=== PATIENT | male | born 1955 | race Caucasian/White ===

== ENCOUNTER 2023-04-07 10:06 | Emergency (ER) | payer MEDICARE, SELFPAY ==
[2023-04-07 10:07] VITALS: BP 133/91; PULSE 98; RESP 19; TEMP 36.8; O2SAT 99; BMI 30.7
--- NOTE | 2023-04-07 10:15 | XR_ITS ---
FINAL REPORT CLINICAL HISTORY: pain/ no accident FINDINGS: Left knee Three views were obtained. There is no acute fracture or dislocation. Mild degenerative changes are present. There is mild meniscal calcification. Moderate joint effusion is identified. IMPRESSION: Moderate joint effusion. Reviewed, Interpreted and Dictated by Yasir Carmona III, MD Transcribed by Janis Robison Authenticated and . [facility]
--- NOTE | 2023-04-07 10:34 | EXP.UTC ---
Discharge Plan Disposition Patient Disposition: Home, Self-Care Condition: Good Prescriptions Prescriptions: New diclofenac sodium 1 % gel 4 g topical QID PRN (Reason: knee pain) Qty: 100 1RF Rx Instructions: apply to single knee as directed methylprednisolone [Medrol (Steve)] 4 mg tablets,dose pack See Rx Instructions .Route .COMPLEX 6 Days Qty: 21 0RF Rx Instructions: taper pack; Referrals Follow up/Referrals: Dave Farah MD [Primary Care Provider] - See instructions Eleno Noble JR, MD [Physician] - See instructions (Call office for appointment) Activity Restrictions/Add. Instructions Additional Instructions/Restrictions: *weight bearing as tolerated *RICE, Rest the extremity, Ice 15-20 minutes 3-4 times daily, Compress- wear the josesito wrap as discussed as much as possible to help reduce swelling and pain, Elevate the extremity when at rest *Josesito wrap/knee brace is for support and help control swelling, use it except in the shower. Be sure that is not to tight but not to loose either *Elevate when resting? *Diclofenac gel applied to knee as needed for pain an inflammation. If need something more can take Tylenol in between doses of Ibuprofen to help Immediately follow up with your family doctor for new or worsening of symptoms, or no noticeable improvement over the next 3-5 days Stay off leg as much as possible Clinical Impressions Clinical Impression: Effusion of knee joint Qualifiers: Laterality: left Qualified Code(s): M25.462 - Effusion, left knee Instructions Patient Instructions: DI for Knee Effusion, Methylprednisolone, Diclofenac Discharge ED Provider: Margot Cunningham [facility] General Stated complaint: left knee pain, no accident Mode of Arrival: Ambulatory Source of Information: Patient Limitations: No Limitations Time Seen by Provider: 04/07/23 10:20 Description of Symptoms (Recalled from Triage Doc. by RN): Patient reports left knee pain for 1 week. HEENT Symptoms (Recalled from RN notes): No Resp Symptoms (Recalled from RN notes): No Skin Symptoms (Recalled from RN notes): No MS Symptoms (Recalled from RN notes): Yes Functional Status (Recalled from RN notes): wnl History of Present Illness Provider Complaint: Patient states he has had bad knees for many years due to his profession States that he was working on a vehicle last week and he turned his knee wrong and it twisted and he has been having pain and swelling in his knee ever since States that he normally takes Motrin for it but he is no longer able to take it Related Data Previous Rx's Medication Instructions Recorded diclofenac sodium 1 % topical gel 4 g topical QID PRN knee pain #100 04/07/23 grams methylprednisolone 4 mg tablets in See Rx Instructions .Route 04/07/23 a dose pack (Medrol (Steve)) .COMPLEX 6 days #21 tabs Allergies Allergy/AdvReac Type Severity Reaction Status Date / Time No Known Allergies Allergy Verified 04/07/23 10:29 Worker's Comp Is this a Worker's Comp case?: No [facility] Disclaimer: The information contained in this section may have been updated after the patient was seen, as this information can be updated by other users. Social History Smoking Status: Unknown if ever smoked alcohol intake: never current occupational status: employed Travel in the last 8 weeks: None ROS Obtained: Yes All systems reviewed & no additional complaints except as documented and Yes Systems reviewed as appropriate & no additional complaints except as documented Constitutional Constitutional: Reports system reviewed and no additional complaints, except as documented, Reports as per HPI and Denies fever(s) ENT Ears, Nose, Mouth, and Throat: Reports system reviewed and no additional complaints, except as documented and Reports as per HPI Cardiovascular Cardiovascular: Reports system reviewed and no additional complaints, except as documented and Reports as per HPI Re
[2023-04-07 12:18] VITALS: BP 133/91; PULSE 98; RESP 19; TEMP 36.8; O2SAT 99
== END 2023-04-07 12:20 | disposition home or self-care (01) ==
PROVIDERS: Emergency Provider Nurse Practitioner; PCP Emergency Medicine
DX: M25.462 Effusion, left knee (principal); M25.562 Pain in left knee; X50.1XXA Overexertion from prolonged static or awkward postures, initial encounter
CPT/HCPCS: 73562; 99204; 99212; G0463

== ENCOUNTER 2023-06-30 11:16 | Emergency (ER) | payer MEDICARE, SELFPAY ==
[2023-06-30 11:35] VITALS: BP 131/86; PULSE 76; RESP 19; TEMP 36.7; O2SAT 98; BMI 28.8
--- NOTE | 2023-06-30 11:36 | XR_ITS ---
FINAL REPORT CLINICAL HISTORY: PAIN AND SWELLING, no known injury FINDINGS: 3 views of the right foot were obtained. There is no acute fracture or dislocation. There are moderate degenerative changes at the first MTP joint. There are mild degenerative changes elsewhere. There is a small calcaneal spur. IMPRESSION: No acute process. Reviewed, Interpreted and Dictated by Yasir Carmona III, MD Transcribed by Markie Barber Authenticated and [facility]
--- NOTE | 2023-06-30 11:45 | EXP.UTC ---
Discharge Plan Disposition Patient Disposition: Home, Self-Care Condition: Good Prescriptions Prescriptions: New colchicine (gout) [Colcrys] 0.6 mg tablet 0.6 mg PO DIRECTED Qty: 3 0RF Rx Instructions: Take 2 tablets (1.2mg) now and wait one hour then take remaining 0.6mg tablet No Action lisinopril 10 mg tablet 10 mg PO DAILY Patient Comments: TAKE 1 TABLET BY MOUTH EVERY DAY Referrals Follow up/Referrals: Provider,Referral, MD [Primary Care Provider] - See instructions Activity Restrictions/Add. Instructions Additional Instructions/Restrictions: Take medication as prescribed Follow up with your Family Doctor You was given a referral for Primary Care Main there is several providers in this office that is accepting new patients you can call to make appoitment Follow up if no improvement Straight to ER if any life threatening symptoms Clinical Impressions Clinical Impression: Gout attack Qualifiers: Gout site: foot Gout etiology: unspecified cause Laterality: right Qualified Code(s): M10.9 - Gout, unspecified Instructions Patient Instructions: Gout, DI for Gout, Colchicine Discharge ED Provider: Margot Cunningham [facility] General Stated complaint: RT FOOT SWOLLEN Mode of Arrival: Ambulatory Source of Information: Patient Limitations: No Limitations Time Seen by Provider: 06/30/23 11:45 Description of Symptoms (Recalled from Triage Doc. 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 banging things States for about the last week he has been having some swelling in his right foot that hurts when he puts weight on it States that if he stays off of it the swelling goes down and the pain decreases but this morning he started hurting again so he came in to get it checked States that he has a history of gout not sure if that could be what is going on or not Denies known injury Related Data Home Medications Medication Instructions Recorded Confirmed lisinopril 10 mg tablet 10 mg PO DAILY Hypertension 06/30/23 06/30/23 Previous Rx's Medication Instructions Recorded colchicine (gout) 0.6 mg tablet 0.6 mg PO DIRECTED #3 tabs 06/30/23 (Colcrys) Allergies Allergy/AdvReac Type Severity Reaction Status Date / Time No Known Allergies Allergy Verified 04/07/23 10:29 Worker's Comp Is this a Worker's Comp case?: No [facility] Disclaimer: The information contained in this section may have been updated after the patient was seen, as this information can be updated by other users. Medical History (Updated 06/30/23 @ 12:51 by Margot Cunningham APRN) Hypertension Social History (Updated 04/07/23 @ 12:13 by Margot Cunningham APRN) Smoking Status: Unknown if ever smoked alcohol intake: never current occupational status: employed Travel in the last 8 weeks: None ROS Obtained: Yes All systems reviewed & no additional complaints except as documented and Yes Systems reviewed as appropriate & no additional complaints except as documented Constitutional Constitutional: Reports system reviewed and no additional complaints, except as documented and Reports as per HPI ENT Ears, Nose, Mouth, and Throat: Reports system reviewed and no additional complaints, except as documented and Reports as per HPI Cardiovascular Cardiovascular: Reports system reviewed and no additional complaints, except as documented and Reports as per HPI Respiratory Respiratory: Reports system reviewed and no additional complaints, except as documented and Reports as per HPI Musculoskeletal Musculoskeletal: Reports system reviewed and
[2023-06-30 13:34] VITALS: BP 131/86; PULSE 76; RESP 19; TEMP 36.7; O2SAT 98
== END 2023-06-30 13:36 | disposition home or self-care (01) ==
PROVIDERS: Emergency Provider Nurse Practitioner
DX: M10.071 Idiopathic gout, right ankle and foot (principal); I10 Essential (primary) hypertension
CPT/HCPCS: 73630; 84550; 96372; 99212; 99214; G0463

== ENCOUNTER 2023-07-20 17:25 | Emergency (ER) | payer MEDICARE, SELFPAY ==
[2023-07-20 17:40] VITALS: BP 147/96; PULSE 76; RESP 18; TEMP 36.7; O2SAT 99; BMI 24.4
--- NOTE | 2023-07-20 17:40 | EXP.UTC ---
Discharge Plan Disposition Patient Disposition: Home, Self-Care Condition: Good Prescriptions Prescriptions: New mupirocin 2 % ointment 1 applic topical TID 7 Days Qty: 15 0RF amoxicillin-pot clavulanate 875-125 mg Tablet 1 tab PO Q12H Qty: 20 0RF No Action lisinopril 10 mg tablet 10 mg PO DAILY Patient Comments: TAKE 1 TABLET BY MOUTH EVERY DAY colchicine [Colcrys] 0.6 mg tablet 0.6 mg PO DIRECTED Qty: 3 0RF Rx Instructions: Take 2 tablets (1.2mg) now and wait one hour then take remaining 0.6mg tablet Referrals Follow up/Referrals: Provider,Referral, MD [Primary Care Provider] - See instructions Activity Restrictions/Add. Instructions Additional Instructions/Restrictions: Keep the wound clean and dry. Watch the wound for signs of worsening infection, such as worsening redness, swelling, drainage, fever. etc. Take tylenol or ibuprofen for pain. Follow up with your regular doctor. GO TO THE ER FOR ANY WORSENING SYMPTOMS OR CONCERNS. Clinical Impressions Clinical Impression: Cat bite of right hand, Need for Tdap vaccination, Cellulitis Instructions Patient Instructions: Cellulitis Discharge ED Provider: Gato Nicholson [facility] General Stated complaint: RT HAND CAT SCRATCH Time Seen by Provider: 07/20/23 17:40 History of Present Illness Provider Complaint: He states that he was bit and scratched by his house cat on his right hand 2 days ago. He denies that the cat ever goes outside. Related Data Home Medications Medication Instructions Recorded Confirmed lisinopril 10 mg tablet 10 mg PO DAILY Hypertension 06/30/23 07/20/23 Previous Rx's Medication Instructions Recorded colchicine 0.6 mg tablet (Colcrys) 0.6 mg PO DIRECTED #3 tabs 06/30/23 amoxicillin 875 mg-potassium 1 tab PO Q12H #20 tabs 07/20/23 clavulanate 125 mg tablet mupirocin 2 % topical ointment 1 applic topical TID 7 days #15 07/20/23 grams Allergies Allergy/AdvReac Type Severity Reaction Status Date / Time No Known Allergies Allergy Verified 07/20/23 17:47 [facility] Disclaimer: The information contained in this section may have been updated after the patient was seen, as this information can be updated by other users. Medical History (Updated 07/20/23 @ 18:16 by Gato Nicholson APRN) Hypertension Social History Smoking Status: Unknown if ever smoked alcohol intake: never current occupational status: employed Travel in the last 8 weeks: None ROS Obtained: Yes All systems reviewed & no additional complaints except as documented Constitutional Constitutional: Denies chills and Denies fever(s) Eyes Eyes: Denies eye discharge ENT Ears, Nose, Mouth, and Throat: Denies dizziness, Denies otalgia and Denies sore throat Cardiovascular Cardiovascular: Denies chest pain Respiratory Respiratory: Denies shortness of breath, Denies chest congestion, Denies cough, Denies stridor and Denies wheezing Gastrointestinal Gastrointestingal: Denies nausea or vomiting Musculoskeletal Musculoskeletal: Reports system reviewed and no additional complaints, except as documented and Denies arthralgias Integumentary/Breasts Skin/Breast: Reports as per HPI Neurologic Neurologic: Denies dizziness and Denies paresthesias Allergic/Immunologic Allergic/Immunologic: Denies wheezing Physical Exam General General appearance: alert and in no apparent distress Head Head exam: atraumatic, normocephalic and normal inspection Eye Eye exam: Present normal appearance, PERRL and EOMI ENT ENT exam: Present normal exam, normal oropharynx, mucous membranes moist, TM's normal bilaterally and normal external ear exam Neck Neck exam: Present normal inspection, full ROM and trachea midline; Absent meningismus or lymphadenopathy Chest Chest inspection: Present normal inspection and symmetric chest wall rise; Absent tenderness Respiratory Resp
[2023-07-20 18:48] VITALS: BP 147/96; PULSE 76; RESP 18; TEMP 36.7; O2SAT 99
== END 2023-07-20 18:48 | disposition home or self-care (01) ==
PROVIDERS: Emergency Provider Nurse Practitioner Family
DX: L03.113 Cellulitis of right upper limb (principal); Z23 Encounter for immunization; W55.01XA Bitten by cat, initial encounter; I10 Essential (primary) hypertension
CPT/HCPCS: 90715; 96372; 99212; 99214; G0463; J0696

== ENCOUNTER 2024-04-08 12:29 | Emergency (ER) | payer MEDICARE, SELFPAY ==
[2024-04-08 13:00] VITALS: BP 156/99; PULSE 86; RESP 18; TEMP 36.9; O2SAT 98; BMI 24.4
--- NOTE | 2024-04-08 14:10 | EXP.UTC ---
Discharge Plan Disposition Patient Disposition: Home, Self-Care Condition: Good Prescriptions Prescriptions: New prednisone 10 mg tablet 10 mg PO DIRECTED Qty: 30 0RF Rx Instructions: see taper instructions Referrals Follow up/Referrals: Provider,Referral, [Primary Care Provider] - See instructions Activity Restrictions/Add. Instructions Additional Instructions/Restrictions: Continue to ice knee and take Ibuprofen as previously prescribed. Take prednisone as prescribed. Elevate knee. Follow up with primary care provider Clinical Impressions Clinical Impression: Effusion of knee joint Qualifiers: Laterality: right Qualified Code(s): M25.461 - Effusion, right knee Instructions Patient Instructions: DI for Knee Effusion, DI for Knee Pain, How To Perform RICE (Rest, Ice, Compress, Elevate) Print Language Print Language: Ecuadorean Discharge ED Provider: Moraima Rodriguez [facility] General Stated complaint: swollen knee Mode of Arrival: Ambulatory Source of Information: Patient Limitations: No Limitations Time Seen by Provider: 04/08/24 13:41 Description of Symptoms (Recalled from Triage Doc. by RN): PATIENT C/O RIGHT KNEE PAIN AND SWELLING X 2 DAYS HEENT Symptoms (Recalled from RN notes): No Resp Symptoms (Recalled from RN notes): No Skin Symptoms (Recalled from RN notes): No MS Symptoms (Recalled from RN notes): Yes Functional Status (Recalled from RN notes): WNL History of Present Illness Provider Complaint: Pt reports that 2 days ago he was getting out of his recliner and twisted wrong and heard a pop in his right knee. He states that he has had swelling and pain in the knee before and does not wish an x-ray at this time. He states that he has been taking Ibuprofen 600 and putting ice on his knee. He states that this has helped, but when he went to work and was on the concrete floor his knee started hurting again. Related Data Previous Rx's ?Medication ?Instructions ?Recorded prednisone 10 mg tablet 10 mg PO DIRECTED #30 tabs 04/08/24 Allergies Allergy/AdvReac Type Severity Reaction Status Date / Time No Known Allergies Allergy Verified 07/20/23 17:47 Worker's Comp Is this a Worker's Comp case?: No [facility] Disclaimer: The information contained in this section may have been updated after the patient was seen, as this information can be updated by other users. Medical History (Updated 04/08/24 @ 14:14 by Moraima Rodriguez APRN) Hypertension Social History Smoking Status: Unknown if ever smoked alcohol intake: never current occupational status: employed Travel in the last 8 weeks: None ROS Obtained: Yes All systems reviewed & no additional complaints except as documented Constitutional Constitutional: Reports system reviewed and no additional complaints, except as documented Eyes Eyes: Reports system reviewed and no additional complaints, except as documented ENT Ears, Nose, Mouth, and Throat: Reports system reviewed and no additional complaints, except as documented Cardiovascular Cardiovascular: Reports system reviewed and no additional complaints, except as documented Respiratory Respiratory: Reports system reviewed and no additional complaints, except as documented Gastrointestinal Gastrointestingal: Reports system reviewed and no additional complaints, except as documented Genitourinary Male Genitourinary: Reports system reviewed and no additional complaints, except as documented Musculoskeletal Musculoskeletal: Reports abnormal gait, Reports arthralgias and Reports joint swelling Integumentary/Breasts Skin/Breast: Reports system reviewed and no additional complaints, except as documented Neurologic Neurologic: Reports system reviewed and no additional complaints, except as documented and Reports abnormal gait Endocrine Endocrine: Reports system reviewed and no additional complaints, except as documented Hematologic/Lymphatic Henatologic/Lymphatic: Reports system reviewed and no additional complaints, except as documented Allergic/Immunologic Allergic/Immunologic: Reports system reviewed and no additional complaints, except as documented Physical Exam General General appearance: alert and in no apparent distress Head Head exam: atraumatic and normocephalic Eye Eye exam: Present normal appearance ENT ENT exam: Present normal exam Neck Neck exam: Present normal inspection Chest Chest inspection: Present normal inspection and symmetric chest wall rise Respiratory Respiratory exam: Present normal lung sounds bilaterally Cardiovascular Cardiovascular exam: Present regular rate, normal rhythm and normal heart sounds Extremities Exam Extremities exam: Present tenderness, edema and joint swelling Expanded Lower Extremity Exam Right: Hip/Pelvis exam: Present normal inspection Upper leg exam: Present normal inspection Knee exam: Present tenderness, swelling and effusion Lower leg exam: Present normal inspection Ankle exam: Present normal inspection Foot/toe exam: Present normal inspection Neurovascular/Tendon exam: Present normal capillary refill Gait: observed and limited by pain Back Exam Back exam: Present normal inspection Neurological Exam Neurological exam: Present alert and oriented X3 Psychiatric Psychiatric exam: Present normal affect and normal mood Skin Skin exam: Present warm and dry Lymphatic Lymphatic Findings: no adenopathy Medical Decision Making Fortunato Inquiry Pt receiving controlled substance: No Fortunato was queried for this patient: No Vital Signs: 04/08/24 13:00 Temperature 98.5 F Temperature Source Oral Pulse Rate [Left Brachial] 86 Respiratory Rate 18 Blood Pressure [Left Arm] 156/99 H Blood Pressure Mean [Left Arm] 118 Blood Pressure Source [Left Arm] Automatic Cuff Blood Pressure Position [Left Arm] Sitting 02 Sat by Pulse Oximetry 98 Oxygen Delivery Method Room Air
[2024-04-08 14:14] VITALS: BP 156/99; PULSE 86; RESP 18; TEMP 36.9; O2SAT 98
== END 2024-04-08 14:17 | disposition home or self-care (01) ==
PROVIDERS: Emergency Provider Nurse Practitioner Family
DX: M25.561 Pain in right knee (principal); M25.461 Effusion, right knee
CPT/HCPCS: 99212; 99214; G0463

== ENCOUNTER 2024-05-31 11:34 | Outpatient (CLI) | payer MEDICARE, SELFPAY ==
--- NOTE | 2024-05-31 11:46 | XR_ITS ---
FINAL REPORT CLINICAL HISTORY: KNEE PAIN COMPARISON: 04/07/2023 FINDINGS: Four views of the left knee were obtained. There is no acute fracture or dislocation. There are mild degenerative changes. There is no acute soft tissue abnormality. IMPRESSION: Degenerative changes without acute process. Reviewed, Interpreted and Dictated by Cherrie Mark MD Transcribed by Joanie Spring Authenticated and [facility]
== END 2024-05-31 23:59 | disposition home or self-care (01) ==
LOC: RAD 11:36
PROVIDERS: PCP Family Medicine; Visit Provider Family Medicine
DX: M25.562 Pain in left knee (principal)
CPT/HCPCS: 73562

== ENCOUNTER 2024-09-02 11:13 | Emergency (ER) | payer MEDICARE, SELFPAY ==
[2024-09-02 13:00] VITALS: BP 130/90; PULSE 80; RESP 18; TEMP 36.9; O2SAT 98; BMI 25.9
--- NOTE | 2024-09-02 13:35 | ED_ITS ---
Discharge Plan Disposition Patient Disposition: Home, Self-Care Condition: Good Prescriptions Prescriptions: New azithromycin [Zithromax Z-Steve] 250 mg tablet See Rx Instructions .ROUTE .COMPLEX 5 Days Qty: 6 0RF Rx Instructions: For 250 mg dose pack: take 500 mg today (day 1), then 250 mg for 4 days (days 2-5) benzonatate 100 mg capsule 100 mg PO TID PRN (Reason: cough) Qty: 30 0RF methylprednisolone [Medrol (Steve)] 4 mg tablets,dose pack See Rx Instructions .Route .COMPLEX 6 Days Qty: 21 0RF Rx Instructions: taper pack; No Action prednisone 10 mg tablet 10 mg PO DIRECTED Qty: 30 0RF Rx Instructions: see taper instructions Referrals Follow up/Referrals: Provider,Referral, MD [Primary Care Provider] - See instructions Activity Restrictions/Add. Instructions Additional Instructions/Restrictions: *Monitor Temp, Over the counter Motrin or Tylenol as directed/as needed Tylenol every 4 hours and Motrin every 6 hours (as long as your family doctor has told you that you can take it) for fever or pain. and straight to ER if unable to lower temp less than 101.0 after medication given *Warm salt water gargles may help to soothe the throat *Throat Lozenges? *Warm fluids like tea with honey may help to soothe the throat? *Sleep elevated *Humidifier/Vaporizer Follow up IMMEDIATELY for new or worsening symptoms or no Noticeable improvement over the next 48-72 hours. 911 for difficulty breathing or swallowing Clinical Impressions Clinical Impression: Sinusitis Instructions Patient Instructions: DI for Sinusitis, Sinusitis Print Language Print Language: Indonesian Discharge ED Provider: Margot [place] [facility] [facility] [place] General Stated complaint: drainage, cough, body aches Mode of Arrival: Ambulatory Source of Information: Patient Limitations: No Limitations Time Seen by Provider: 09/02/24 13:35 Description of Symptoms (Recalled from Triage Doc. by RN): PATIENT C/O COUGH AND BODY ACHES THAT STARTED TODAY HEENT Symptoms (Recalled from RN notes): Yes Resp Symptoms (Recalled from RN notes): No Skin Symptoms (Recalled from RN notes): No MS Symptoms (Recalled from RN notes): No Functional Status (Recalled from RN notes): WNL History of Present Illness Provider Complaint: Patient states that he has been having sinus congestion and pressure then last night he started with cough and feeling like it was trying to move into his chest area so today when he was still not feeling well he came in to get checked Related Data Previous Rx's ?Medication ?Instructions ?Recorded prednisone 10 mg tablet 10 mg PO DIRECTED #30 tabs 04/08/24 azithromycin 250 mg tablet See Rx Instructions PO .COMPLEX 5 09/02/24 (Zithromax Z-Steve) days #6 tabs benzonatate 100 mg capsule 100 mg PO TID PRN cough #30 caps 09/02/24 methylprednisolone 4 mg tablets in See Rx Instructions .Route 09/02/24 a dose pack (Medrol (Steve)) .COMPLEX 6 days #21 tabs Allergies Allergy/AdvReac Type Severity Reaction Status Date / Time No Known Allergies Allergy Verified 07/20/23 17:47 Worker's Comp Is this a Worker's Comp case?: [facility] Disclaimer: The information contained in this section may have been updated after the patient was seen, as this information can be updated by other users. Medical History (Updated 09/02/24 @ 13:40 by Margot Cunningham APRN) Hypertension Social History Smoking Status: Unknown if ever smoked alcohol intake: never current occupational status: employed Travel in the last 8 weeks: None Have you lived/traveled outside US in past 30 days?: No Contact w/someone who lives/traveled outside US past 30 days?: No Exposure to someone with infectious disease in past 14 days?: No Do you have a fever (greater than 100.4 F or 38 C)?: No Have you tested positive for COVID-19: No Exposed to someone with COVID-19 in past 14 days?: No Do you have a sore throat?: No Do you have a cough?: Yes Do you have any weakness?: No Do you have any diarrhea?: No Are you experiencing any unusual bleeding?: No Do you have any muscle aches/pain?: Yes Do you have any abdominal pain?: No Are you experiencing loss of taste or smell?: No ROS Obtained: Yes All systems reviewed & no additional complaints except as documented and Yes Systems reviewed as appropriate & no additional complaints except as documented Constitutional Constitutional: Reports system reviewed and no additional complaints, except as documented and Reports as per HPI ENT Ears, Nose, Mouth, and Throat: Reports system reviewed and no additional complaints, except as documented, Reports as per HPI, Reports sinus pain and Reports sinus pressure Cardiovascular Cardiovascular: Reports system reviewed and no additional complaints, except as documented and Reports as per HPI Respiratory Respiratory: Reports system reviewed and no additional complaints, except as documented, Reports as per HPI, Denies shortness of breath, Reports chest congestion and Reports cough Physical Exam General General appearance: alert and in no apparent distress ENT ENT exam: Present mucous membranes moist Expanded ENT Exam Nose exam: Present sinus tenderness Respiratory Respiratory exam: Present normal lung sounds bilaterally; Absent respiratory distress or wheezes Cardiovascular Cardiovascular exam: Present regular rate, normal rhythm and normal heart sounds Neurological Exam Neurological exam: Present alert, oriented X3 and normal gait Medical Decision Making Medical Records Screening: Per USPSTF and CDC recommendations, given the prevalence of disease in our region, it is our hospital?s policy to screen for HIV and viral Hepatitis for all patients aged 18 and over and those with ongoing risk factors. Fortunato Inquiry Pt receiving controlled substance: No Fortunato was queried for this patient: No Vital Signs: 09/02/24 13:00 Temperature 98.5 F Temperature Source Oral Pulse Rate [Left Brachial] 80 Respiratory Rate 18 Blood Pressure [Left Arm] 130/90 Blood Pressure Mean [Left Arm] 103 Blood Pressure Source [Left Arm] Automatic Cuff Blood Pressure Position [Left Arm] Sitting 02 Sat by Pulse Oximetry 98 Oxygen Delivery Method Room Air
[2024-09-02 13:41] VITALS: BP 130/90; PULSE 80; RESP 18; TEMP 36.9; O2SAT 98
== END 2024-09-02 13:48 | disposition home or self-care (01) ==
PROVIDERS: Emergency Provider Nurse Practitioner
DX: J32.9 Chronic sinusitis, unspecified (principal)
CPT/HCPCS: 99213; G0381

== ENCOUNTER 2024-09-03 20:26 | Emergency (ER) | payer MEDICARE, SELFPAY ==
[2024-09-03 21:12] VITALS: BP 122/86; PULSE 101; RESP 20; TEMP 38.3; O2SAT 95; BMI 53.1
--- NOTE | 2024-09-03 21:16 | PC.NURSE ---
Skin pink warm and dry Resp full and easy Speech clear and appropriate. Lungs clear to posterior auscultation.
[2024-09-03 21:30] LABS: Coronavirus 19, PCR Not Detected (NotDetected); Influenza B, PCR Not Detected (NotDetected)
--- NOTE | 2024-09-03 21:32 | ED_ITS ---
Discharge Plan Disposition Patient Disposition: Home, Self-Care Prescriptions Prescriptions: No Action prednisone 10 mg tablet 10 mg PO DIRECTED Qty: 30 0RF Rx Instructions: see taper instructions azithromycin [Zithromax Z-Steve] 250 mg tablet See Rx Instructions .ROUTE .COMPLEX 5 Days Qty: 6 0RF Rx Instructions: For 250 mg dose pack: take 500 mg today (day 1), then 250 mg for 4 days (days 2-5) benzonatate 100 mg capsule 100 mg PO TID PRN (Reason: cough) Qty: 30 0RF methylprednisolone [Medrol (Steve)] 4 mg tablets,dose pack See Rx Instructions .Route .COMPLEX 6 Days Qty: 21 0RF Rx Instructions: taper pack; Referrals Follow up/Referrals: Provider,Referral, MD [Primary Care Provider] - See instructions Activity Restrictions/Add. Instructions Additional Instructions/Restrictions: Call your family doctor to establish care for this visit to the emergency department and schedule follow-up within 48 hours to ensure improvement. Take Tylenol 1000 mg every 6 hours (4 times daily) and ibuprofen 400 mg every 6 hours (4 times daily) as needed with food and water to prevent GI upset and kidney damage. You can discontinue taking antibiotic. Steroid will help with infla mmatory symptoms. Clinical Impressions Clinical Impression: Acute viral syndrome Print Language Print Language: Citizen Of [place] Discharge ED Provider: Reilly Smith General Adult HPI General Chief complaint: Upper Respiratory Infection Stated complaint: body aches fever Time Seen by Provider: 09/03/24 21:12 Mode of Arrival: Ambulatory Source of Information: Patient Limitations: No Limitations Description of Symptoms (Recalled from ER Triage Doc. by RN): Pt states seen in the [facility] yesterday for viral illness and started on prednisone. Today continues to have a fever and cough. History of Present Illness HPI narrative: Please note that above description of symptoms, in this electronic medical record under categorization of recalled from ER triage doctor by RN are reflective of an initial nursing assessment, however, is not reflective of my full history and physical exam that was personally taken and clarified. Consequentially, this preceding description of symptoms, which may include the patient's categorized chief complaint in the EMR, do not reflect my personal clinical impression, and the ultimate description of history of present illness and patient stated complaints should be deferred to this section of the note. Unless stated otherwise or congruent with this section of the note, additional signs, symptoms, or incongruence should be interpreted as inaccurate with my clinical impression. Related Data Previous Rx's ?Medication ?Instructions ?Recorded prednisone 10 mg tablet 10 mg PO DIRECTED #30 tabs 04/08/24 azithromycin 250 mg tablet See Rx Instructions PO .COMPLEX 5 09/02/24 (Zithromax Z-Steve) days #6 tabs benzonatate 100 mg capsule 100 mg PO TID PRN cough #30 caps 09/02/24 methylprednisolone 4 mg tablets in See Rx Instructions .Route 09/02/24 a dose pack (Medrol (Steve)) .COMPLEX 6 days #21 tabs Allergies Allergy/AdvReac Type Severity Reaction Status Date / Time No Known Allergies Allergy Verified 07/20/23 17:47 [facility] Disclaimer: The information contained in this section may have been updated after the patient was seen, as this information can be updated by other users. Medical History (Updated 09/03/24 @ 21:35 by Reilly Smith MD) Hypertension Social History Smoking Status: Never smoker alcohol intake: never current occupational status: employed Travel in the last 8 weeks: None Have you lived/traveled outside US in past 30 days?: No Contact w/someone who lives/traveled outside US past 30 days?: No Exposure to someone with infectious disease in past 14 days?: No Do you have a fever (greater than 100.4 F or 38 C)?: Yes Have you tested positive for COVID-19: No Exposed to someone with COVID-19 in past 14 days?: No Do you have a sore throat?: No Do you have a cough?: No Do you have any weakness?: No Do you have any diarrhea?: No Are you experiencing any unusual bleeding?: No Do you have any muscle aches/pain?: Yes Do you have any abdominal pain?: No Are you experiencing loss of taste or smell?: No ROS Obtained: Yes All systems reviewed & no additional complaints except as documented Physical Exam General General appearance: alert Head Head exam: atraumatic and normocephalic Eye Eye exam: Present normal appearance, PERRL and EOMI Neck Neck exam: Present normal inspection, full ROM and trachea midline Respiratory Respiratory exam: Present normal lung sounds bilaterally; Absent respiratory distress, wheezes, stridor, accessory muscle use or prolonged expiratory phase Cardiovascular Cardiovascular exam: Present normal rhythm, tachycardia and other (Pulses equal symmetric in upper and lower extremities) Abdominal Exam Abdominal exam: Present soft; Absent distention, tenderness or pulsatile mass Extremities Exam Extremities exam: Absent edema Neurological Exam Neurological exam: Present alert, oriented X3 and CN II-XII intact; Absent motor sensory deficit Skin Skin exam: Present warm and dry; Absent diaphoresis or erythema Medical Decision Making Medical Records Medical records reviewed: Yes I reviewed the patient's medical records. Screening: Per USPSTF and CDC recommendations, given the prevalence of disease in our region, it is our hospital?s policy to screen for HIV and viral Hepatitis for all patients aged 18 and over and those with ongoing risk factors. Fortunato Inquiry Pt receiving controlled substance: No Fortunato was queried for this patient: No Vital Signs: 09/03/24 21:12 Temperature 101.0 F H Temperature Source Oral Pulse Rate [Right Brachial] 101 H Respiratory Rate 20 Blood Pressure [Right Arm] 122/86 Blood Pressure Mean [Right Arm] 98 Blood Pressure Source [Right Arm] Automatic Cuff Blood Pressure Position [Right Arm] Sitting 02 Sat by Pulse Oximetry 95 Oxygen Delivery Method Room Air Lab Data Lab Results 09/03/24 21:22: SARS-CoV-2 (PCR) Not detected, Influenza A Untype (PCR) Detected A, Influenza Type B (PCR) Not detected Orders (Tests/Meds): ORDERS Category Date Time Status HIV (1&2) Antibody Rapid Stat Lab 09/03/24 21:15 Ordered Hep C Ab with Reflex to RNA Stat Lab 09/03/24 21:15 Ordered Rapid PCR Covid and Flu A/B Stat Lab 09/03/24 21:22 Completed Medical Decision Narrative: 69-year-old male presenting with URI symptoms and viral syndrome. Patient states that he started having symptoms about 2 days prior to this. Yesterday was only having runny nose, cough. Today started having fever and bodyaches. Taking Tylenol for this. Has been taking a Z-Steve and prednisone he was prescribed at the urgent care yesterday, 09/02. Intermittently coughing, but nonproductive. No other associated symptoms and tolerating p.o. intake without issue. History was obtained via conversation with patient. On arrival, patient hemodynamically stable, alert, oriented x4, appropriate, GCS 15, moving all extremities spontaneously, pupils equal and reactive to light. Full physical exam performed and significant for well-appearing male no acute distress. Sniffling. Mask is on. Lungs are clear. Very well clinically appearing with no clinical concern for any emergent pathology and speaking full sentences. Differential includes viral syndrome, among others. Patient opting for swab, this was obtained. On independent interpretation, influenza A positive. Because patient at baseline without signs or symptoms of clinical decompensation, deemed appropriate for discharge. Results were relayed to patient who voiced understanding and were agreeable to outpatient management and follow up. I discussed my clinical impression with patient and answered all questions. At this time, the evidence for any other entities in the differential is insufficient to warrant any further testing or ED observation. This was explained as well. Advisory was given that persistent or worsening symptoms require further evaluation. I confirmed the understanding of this discussion. Business Banking Manager disclaimer Much of this encounter note is an electronic regular senior care provider spoken language to printed text. Electronic regular senior care provider of the spoken language may permit errors. Although I have reviewed the note, some errors may still exist. Critical Care Critical Care Time Critical Care Time: No
[2024-09-03 22:04] LABS: Influenza A, PCR Detected (NotDetected)
[2024-09-03 22:48] VITALS: BP 121/69; PULSE 88; RESP 16; TEMP 37.8; O2SAT 96
== END 2024-09-03 22:51 | disposition home or self-care (01) ==
PROVIDERS: Emergency Provider Emergency Medicine
DX: B34.9 Viral infection, unspecified (principal); R50.9 Fever, unspecified; R05.9 Cough, unspecified; M79.10 Myalgia, unspecified site
CPT/HCPCS: 87636; 99282; 99283

== ENCOUNTER 2024-09-13 09:58 | Emergency (ER) | payer MEDICARE, SELFPAY ==
[2024-09-13 10:11] VITALS: BP 134/90; PULSE 84; RESP 20; TEMP 36.6; O2SAT 97; BMI 25.2
--- NOTE | 2024-09-13 10:12 | XR_ITS ---
FINAL REPORT TECHNIQUE: Chest PA & Lateral CLINICAL HISTORY: deep cough, r/o pna COMPARISON: None FINDINGS: 2 views of the chest were performed. The heart size is normal. The mediastinum is within normal limits. There is no acute cardiopulmonary process. There are no pleural effusions. There is no pneumothorax. The bony thorax appears intact. IMPRESSION: No acute cardiopulmonary process. Reviewed, Interpreted and Dictated by Kash Dunbar MD Transcribed by Mia Shah Authenticated and [facility]
[2024-09-13] MEDS: DEXAMETHASONE 4MG/ML 1ML VIAL 8 MG IM (10:31)
--- NOTE | 2024-09-13 10:37 | ED_ITS ---
Discharge Plan Disposition Patient Disposition: Home, Self-Care Condition: Good Prescriptions Prescriptions: New prednisone 10 mg tablet 10 mg PO DIRECTED 6 Days Qty: 14 0RF Rx Instructions: Take 4 tablets daily for 2 days, then take 2 tablets daily for 2 days, then take 1 tablet daily for 2 days, then stop. benzonatate 100 mg capsule 100 mg PO TIDP PRN (Reason: Cough) Qty: 30 0RF albuterol sulfate [Ventolin HFA] 90 mcg/actuation HFA aerosol inhaler 2 puff inhalation Q6H PRN (Reason: shortness of breath or wheezing) Qty: 6.7 0RF cefdinir 300 mg capsule 300 mg PO BID Qty: 20 0RF No Action lisinopril 10 mg tablet 10 mg PO DAILY Patient Comments: TAKE 1 TABLET BY MOUTH ONCE DAILY Referrals Follow up/Referrals: Provider,Referral, MD [Primary Care Provider] - See instructions Activity Restrictions/Add. Instructions Additional Instructions/Restrictions: Drink plenty of fluids. Take tylenol or ibuprofen for pain or fever. Take the medications as directed. Follow up with your regular doctor. GO TO THE ER FOR ANY WORSENING SYMPTOMS Don't start the oral steroids (medrol dose pack) until tomorrow since you had the shot here. Clinical Impressions Clinical Impression: Acute bronchitis Instructions Patient Instructions: Acute Bronchitis, DI for Acute Bronchitis, Prednisone, Albuterol Oral Inhalation, Dexamethasone Injection Print Language Print Language: [place] Discharge ED Provider: Gato Nicholson [facility] [place] HPI General Stated complaint: cough, side pain, weakness Mode of Arrival: Ambulatory Source of Information: Patient Time Seen by Provider: 09/13/24 10:23 Description of Symptoms (Recalled from Triage Doc. by RN): deep CHEST COUGH, CONGESTION HEENT Symptoms (Recalled from RN notes): No Resp Symptoms (Recalled from RN notes): Yes Skin Symptoms (Recalled from RN notes): No MS Symptoms (Recalled from RN notes): No Functional Status (Recalled from RN notes): WNL History of Present Illness Provider Complaint: He states that he has had chest congestion, productive cough, and sinus congestion for the past 1 week. Related Data Home Medications ?Medication ?Instructions ?Recorded ?Confirmed lisinopril 10 mg tablet 10 mg PO DAILY 09/13/24 09/13/24 Previous Rx's ?Medication ?Instructions ?Recorded albuterol sulfate 90 mcg/actuation 2 puff inhalation Q6H PRN 09/13/24 aerosol inhaler (Ventolin HFA) shortness of breath or wheezing #6.7 grams benzonatate 100 mg capsule 100 mg PO TIDP PRN Cough #30 caps 09/13/24 cefdinir 300 mg capsule 300 mg PO BID #20 caps 09/13/24 prednisone 10 mg tablet 10 mg PO DIRECTED 6 days #14 09/13/24 tabs Allergies Allergy/AdvReac Type Severity Reaction Status Date / Time No Known Allergies Allergy Verified 07/20/23 17:47 Worker's Comp Is this a Worker's Comp case?: No [facility] Disclaimer: The information contained in this section may have been updated after the patient was seen, as this information can be updated by other users. Medical History (Updated 09/13/24 @ 10:49 by Gato Nicholson APRN) Hypertension Social History Smoking Status: Never smoker alcohol intake: never current occupational status: employed Travel in the last 8 weeks: None Have you lived/traveled outside US in past 30 days?: No Contact w/someone who lives/traveled outside US past 30 days?: No Exposure to someone with infectious disease in past 14 days?: No Do you have a fever (greater than 100.4 F or 38 C)?: No Have you tested positive for COVID-19: No Exposed to someone with COVID-19 in past 14 days?: No Do you have a sore throat?: No Do you have a cough?: Yes Do you have any weakness?: No Do you have any diarrhea?: No Are you experiencing any unusual bleeding?: No Do you have any muscle aches/pain?: No Do you have any abdominal pain?: No Are you experiencing loss of taste or smell?: No ROS Obtained: Yes All systems reviewed & no additional complaints except as documented Constitutional Constitutional: Denies chills and Denies fever(s) Eyes Eyes: Denies eye discharge ENT Ears, Nose, Mouth, and Throat: Denies dizziness, Denies otalgia and Denies sore throat Cardiovascular Cardiovascular: Denies chest pain Respiratory Respiratory: Denies shortness of breath, Reports chest congestion, Denies cough, Denies stridor and Denies wheezing Gastrointestinal Gastrointestingal: Denies nausea or vomiting Musculoskeletal Musculoskeletal: Reports system reviewed and no additional complaints, except as documented and Denies arthralgias Integumentary/Breasts Skin/Breast: Denies rash Neurologic Neurologic: Denies dizziness and Denies paresthesias Allergic/Immunologic Allergic/Immunologic: Denies wheezing Physical Exam General General appearance: alert and in no apparent distress Head Head exam: atraumatic, normocephalic and normal inspection Eye Eye exam: Present normal appearance, PERRL and EOMI ENT ENT exam: Present normal exam, normal oropharynx, mucous membranes moist, TM's normal bilaterally and normal external ear exam Neck Neck exam: Present normal inspection, full ROM and trachea midline; Absent meningismus or lymphadenopathy Chest Chest inspection: Present normal inspection and symmetric chest wall rise; Absent tenderness Respiratory Respiratory exam: Present normal lung sounds bilaterally; Absent respiratory distress Cardiovascular Cardiovascular exam: Present regular rate and normal rhythm; Absent JVD Abdominal Exam Abdominal exam: Present soft and normal bowel sounds; Absent distention, tenderness or guarding Extremities Exam Extremities exam: Present normal inspection, full ROM and normal capillary refill; Absent calf tenderness Back Exam Back exam: Present normal inspection; Absent tenderness Neurological Exam Neurological exam: Present alert and oriented X3 Psychiatric Psychiatric exam: Present normal affect and normal mood Skin Skin exam: Present warm, dry, intact and normal color Lymphatic Lymphatic Findings: no adenopathy Medical Decision Making Medical Records Medical records reviewed: No I reviewed the patient's medical records. Screening: Per USPSTF and CDC recommendations, given the prevalence of disease in our region, it is our hospital?s policy to screen for HIV and viral Hepatitis for all patients aged 18 and over and those with ongoing risk factors. Fortunato Inquiry Pt receiving controlled substance: No Vital Signs: 09/13/24 10:11 Temperature 97.8 F Temperature Source Oral Pulse Rate [Left Brachial] 84 Respiratory Rate 20 Blood Pressure [Left Arm] 134/90 Blood Pressure Mean [Left Arm] 104 02 Sat by Pulse Oximetry 97 Orders (Tests/Meds): ED MEDICATIONS Discontinued Medications Generic Name Dose Route Start Last Admin Trade Name Freq PRN Reason Stop Dose Admin Dexamethasone Sodium Phosphate 8 mg 09/13/24 10:29 09/13/24 10:31 Dexamethasone 4mg/Ml 1ml Vial IM 09/13/24 10:30 8 mg ONCE ONE Administration ORDERS Category Date Time Status Chest XR 2 view (NOT portable) [XR chest 2V] Stat Exams 09/13/24 10:12 Taken
[2024-09-13 10:50] VITALS: BP 134/90; PULSE 84; RESP 20; TEMP 36.6
== END 2024-09-13 10:54 | disposition home or self-care (01) ==
PROVIDERS: Emergency Provider Nurse Practitioner Family
DX: J20.9 Acute bronchitis, unspecified (principal); R05.9 Cough, unspecified; R09.81 Nasal congestion
CPT/HCPCS: 71046; 99212; G0381; J1100

== ENCOUNTER 2025-09-02 09:20 | Outpatient (CLI) | payer MEDICARE, SELFPAY ==
--- NOTE | 2025-09-02 09:34 | XR_ITS ---
PROCEDURE INFORMATION: Exam: XR Right Shoulder Exam date and time: 09/02/2025 9:24 AM Age: 70 years old Clinical indication: Injury or trauma; Other: Ran into a board; Blunt trauma (contusions or hematomas); Shoulder; Right; Additional info: R shoulder pain TECHNIQUE: Imaging protocol: Radiologic exam of the right shoulder. Views: 2 or more views. COMPARISON: CR XR CHEST 2V 09/13/2024 10:08 AM FINDINGS: Bones/joints: There is normal anatomic alignment of the right shoulder. No evidence of a fracture or dislocation. The right clavicle and right upper ribs are intact. There are chronic degenerative changes of the right acromioclavicular joint. Soft tissues: Normal. IMPRESSION: 1. No suggestion of an acute right shoulder abnormality. 2. There are chronic degenerative changes of the right AC joint.
== END 2025-09-02 23:59 ==
LOC: RAD 09:24
PROVIDERS: Visit Provider Student in an Organized Health Care Education/Training Program
DX: M19.011 Primary osteoarthritis, right shoulder (principal); W22.09XA Striking against other stationary object, initial encounter
CPT/HCPCS: 73030

== ENCOUNTER 2025-09-06 09:57 | Emergency (ER) | payer MEDICARE, SELFPAY ==
[2025-09-06 09:59] VITALS: BP 167/105; PULSE 97; RESP 16; TEMP 37.1; O2SAT 98; BMI 27.6
--- NOTE | 2025-09-06 10:05 | CA_ITS ---
FINAL REPORT TECHNIQUE: Graded compression, spectral analysis and ultrasound images of the venous system of the right upper extremity were obtained. CLINICAL HISTORY: Patient recently injured his right shoulder and was placed in a sling. Right arm was immobile x 2 weeks. Right hand swelling today and is unable to make a fist secondary to swelling in hand. FINDINGS: The jugular vein, subclavian vein, axillary vein, brachial vein, cephalic vein and basilic venous system are fully compressible and demonstrate no evidence of thrombosis. IMPRESSION: No evidence of thrombosis of the venous system of the right upper extremity. Reviewed, Interpreted and Dictated by Maureen Gordon MD Transcribed by Joanie Spring Authenticated and [facility]
--- NOTE | 2025-09-06 10:05 | XR_ITS ---
FINAL REPORT CLINICAL HISTORY: swelling x2 days COMPARISON: None FINDINGS: AP, lateral and oblique views of the right hand were obtained. There is no acute osseous abnormality of the right hand. Deformity of the distal tuft of the fourth digit is favored to be chronic. 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 There is nonspecific soft tissue edema, worse dorsally. IMPRESSION: Soft tissue edema without acute osseous abnormality could represent cellulitis. Reviewed, Interpreted and Dictated by Maureen Gordon MD Transcribed by Jenifer Levin Authenticated and [facility]
--- NOTE | 2025-09-06 10:10 | HMH.EDGENADL ---
Discharge Plan Disposition Patient Disposition: Home, Self-Care Prescriptions Prescriptions: New prednisone 20 mg tablet 20 mg PO BID 7 Days Qty: 14 0RF clindamycin HCl [Cleocin HCl] 300 mg capsule 300 mg PO BID 7 Days Qty: 14 0RF No Action lisinopril 10 mg tablet 10 mg PO DAILY Qty: 30 2RF colchicine [Colcrys] 0.6 mg tablet 0.6 mg PO DIRECTED Qty: 6 0RF Rx Instructions: Take two tablets (1.2mg) now wait one hour then take one tablet (0.6mg) may repeat in 72 hours if still having symptoms ibuprofen 800 mg tablet 800 mg PO Q8H Qty: 30 0RF lisinopril 10 mg tablet 10 mg PO DAILY Patient Comments: TAKE 1 TABLET BY MOUTH ONCE DAILY Referrals Follow up/Referrals: Romulo Palafox DO [Staff Physician, Orthopedics] - See instructions Provider,Referral, [Primary Care Provider, Medical] - See instructions Activity Restrictions/Add. Instructions Additional Instructions/Restrictions: Take meds as directed. Call Dr. Palafox for an appointment. If symptoms worsen or do not improve please call PCP or return to the ED. Clinical Impressions Clinical Impression: Cellulitis Gout attack Qualifiers: Gout site: foot Gout etiology: unspecified cause Laterality: right Qualified Code(s): M10.9 - Gout, unspecified Instructions Patient Instructions: Cellulitis, DI for Gout Print Language Print Language: Belarusian Discharge ED Provider: Johnathan Sanabria Adult HPI <Demetrice Tam (ED), ASSOCIATE SPA DIRECTOR - Last Filed: 09/06/25 12:11> General Chief complaint: PAIN Stated complaint: right hand swollen w Pain Time Seen by Provider: 09/06/25 10:00 History of Present Illness HPI narrative: 70-year-old male presents for right hand and wrist swelling for the last 2 days. Says he broke it a few years ago and he has trouble with that anyway. 2 weeks ago he picked a table left and put it in the truck a week later he bumped his shoulder had pain in his shoulder went to [facility] and was sent here for x-ray. 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 He is placed in a sling for the shoulder. He wore it up until a couple days ago. He says that shoulder does not hurt anymore but now his right hand and wrist is very swollen. He cannot make a fist. He is having pain with the swelling. No erythema. No fevers or chills. No systemic symptoms of infection. Related Data Home Medications ?Medication ?Instructions ?Recorded ?Confirmed lisinopril 10 mg tablet 10 mg PO DAILY 09/13/24 09/02/25 Previous Rx's ?Medication ?Instructions ?Recorded colchicine 0.6 mg tablet (Colcrys) 0.6 mg PO DIRECTED #6 tabs 02/07/25 lisinopril 10 mg tablet 10 mg PO DAILY #30 tabs 02/07/25 ibuprofen 800 mg tablet 800 mg PO Q8H #30 tabs 09/02/25 clindamycin HCl 300 mg capsule 300 mg PO BID 7 days #14 caps 09/06/25 (Cleocin HCl) prednisone 20 mg tablet 20 mg PO BID 7 days #14 tabs 09/06/25 Allergies Allergy/AdvReac Type Severity Reaction Status Date / Time No Known Allergies Allergy Verified 09/02/25 08:43 PFS <Demetrice Tam (ED), ASSOCIATE SPA DIRECTOR - Last Filed: 09/06/25 12:11> [facility] Disclaimer: The information contained in this section may have been updated after the patient was seen, as this information can be updated by other users. Medical History (Updated 09/06/25 @ 12:09 by Demetrice Tam (ED), ASSOCIATE SPA DIRECTOR) Hypertension Social History Smoking Status: Never smoker alcohol intake: never current occupational status: employed Travel in the last 8 weeks?: None Have you lived/traveled outside [place] in past 30 days?: No Contact w/someone who lives/traveled outside US past 30 days?: No Exposure to someone with infectious disease in past 14 days?: No Do you have a fever (greater than 100.4 F or 38 C)?: No Have you tested positive for COVID-19?: No Exposed to someone with COVID-19 in past 14 days?: No Do you have a sore throat?: No Do you have a cough?: No Do you have any weakness?: No Do you have any diarrhea?: No Are you experiencing any unusual bleeding?: No Do you have any muscle aches/pain?: No Do you have any abdominal pain?: No Are you experiencing loss of taste or smell?: No <Demetrice Kilricco (ED), ASSOCIATE SPA DIRECTOR - Last Filed: 09/06/25 12:11> ROS Obtained: Yes Systems reviewed as appropriate & no additional complaints except as documented Constitutional Constitutional: Reports as per HPI Physical Exam <Demetrice Stevensonricco (ED), ASSOCIATE SPA DIRECTOR - Last Filed: 09/06/25 12:11> General General appearance: alert Head Head exam: normocephalic Eye Eye exam: Present PERRL and EOMI ENT ENT exam: Present mucous membranes moist Neck Neck exam: Present trachea midline Respiratory Respiratory exam: Present normal lung sounds bilaterally Cardiovascular Cardiovascular exam: Present regular rate, normal rhythm, +S1 and +S2 Extremities Exam Extremities exam: Present tenderness and edema Neurological Exam Neurological exam: Present alert and oriented X3 Skin Skin exam: Present warm and dry Medical Decision Making <Demetrice Kilricco (ED), ASSOCIATE SPA DIRECTOR - Last Filed: 09/06/25 12:11> Medical Records Screening: Per USPSTF and CDC recommendations, given the prevalence of disease in our region, it is our hospital?s policy to screen for HIV and viral Hepatitis for all patients aged 18 and over and those with ongoing risk factors. [place] Inquiry Pt receiving controlled substance: No [place] was queried for this patient: No Vital Signs: 09/06/25 09:59 09/06/25 09:59 09/06/25 10:26 Temperature 98.8 F 98.8 F Temperature Source Oral Oral Pulse Rate 97 H 89 Pulse Rate [Right] 97 H Respiratory Rate 16 16 Blood Pressure 167/105 H 148/110 H Blood Pressure [Right Arm] 167/105 H Blood Pressure Mean 125 Blood Pressure Mean [Right Arm] 125 Blood Pressure Source Automatic Cuff Blood Pressure Source [Right Arm] Automatic Cuff Blood Pressure Position Supine Blood Pressure Position [Right Arm] Supine 02 Sat by Pulse Oximetry 98 98 98 Oxygen Delivery Method Room Air Room Air 09/06/25 11:00 09/06/25 11:30 Temperature Temperature Source Pulse Rate 91 H 85 Pulse Rate [Right] Respiratory Rate Blood Pressure 161/104 H 146/88 H Blood Pressure [Right Arm] Blood Pressure Mean 123 124 Blood Pressure Mean [Right Arm] Blood Pressure Source Blood Pressure Source [Right Arm] Blood Pressure Position Blood Pressure Position [Right Arm] 02 Sat by Pulse Oximetry 99 96 Oxygen Delivery Method Lab Data Lab Results 09/06/25 10:00: WBC 10.4, RBC 4.81, Hgb 14.6, Hct 43.6, MCV 90.6, MCH 30.4, MCHC 33.5, RDW 12.4, Plt Count 299, MPV 9.7, Neut % (Auto) 74.9, Lymph % (Auto) 13.9, [place] % (Auto) 9.1, Eos % (Auto) 1.1, Baso % (Auto) 0.5, Neut # (Auto) 7.8, Lymph # (Auto) 1.4, Coryell # (Auto) 0.9, Eos # (Auto) 0.1, Baso # (Auto) 0.1, ESR 64 H, Sodium 139, Potassium 4.0, Chloride 105, Carbon Dioxide 27, Anion Gap 11.0, BUN 20, Creatinine 1.60 H, Estimated Creat Clear 53, Estimated GFR 43 L, Est GFR ( Amer) 52 L, Glucose 114 H, Calcium 9.5, Magnesium 2.1, Total Bilirubin 1.1, AST 42, ALT 65, Alkaline Phosphatase 115, C-Reactive Protein 162.8 H, Total Protein 7.3, Albumin 4.1, Globulin 3.2, Albumin/Globulin Ratio 1.3, HCV Ab MARY w/Rflx PCR Qn Negative, HIV Ag/Ab Combo Qual Negative 09/06/25 10:00 09/06/25 10:00 Orders (Tests/Meds): ED MEDICATIONS Discontinued Medications Generic Name Dose Route Start Last Admin Trade Name Freq PRN Reason Stop Dose Admin Dexamethasone Sodium Phosphate 8 mg 09/06/25 10:07 09/06/25 10:19 Dexamethasone 4mg/Ml 1ml Vial IV 09/06/25 10:08 8 mg ONCE ONE Administration Ketorolac Tromethamine 30 mg 09/06/25 10:07 09/06/25 10:19 Ketorolac 30mg/Ml Vial IV 09/06/25 10:08 30 mg ONCE ONE Administration Lidocaine HCl 20 ml 09/06/25 11:30 09/06/25 11:39 Lidocaine 1% 20ml Mdv IJ 09/06/25 11:31 10 ml ONCE ONE Administration ORDERS Category Date Time Status Hand XR right minimum 3 views [XR hand RT min 3V] Stat Exams 09/06/25 10:05 Completed Wrist XR right 2 views [XR wrist RT 2V] Stat Exams 09/06/25 10:31 Taken CBC [Complete Blood Count Auto Diff] Stat Lab 09/06/25 10:00 Completed CRP [C-Reactive Protein] Stat Lab 09/06/25 10:00 Completed Comprehensive Metabolic Panel Stat Lab 09/06/25 10:00 Completed ESR [Erythrocyte Sedimentation Rate] Stat Lab 09/06/25 10:00 Completed HIV Combo Stat Lab 09/06/25 10:00 Completed Hepatitis C Ab Qual. W/ RFX Stat Lab 09/06/25 10:00 Completed Magnesium Stat Lab 09/06/25 10:00 Completed CA venous doppler UE RT Stat Y 09/06/25 10:05 Completed Medical Decision Narrative: patient is a 70-year-old male presenting to the emergency department for evaluation of right hand and wrist swelling that started 2 days ago. Patient is hemodynamically stable and nontoxic-appearing upon arrival, afebrile. Differential diagnosis includes DVT, arthritis, unknown injury, among others. Workup will be conducted with hematologic labs, specific imaging, provocative tests. Initial inventions include analgesics. Initial workup reviewed by me hematologic labs are remarkable for White blood cell count 10.4 the rest of the CBC is normal ESR was 64, CRP was also 162, creatinine was bumped at 1.6, BUN was 20. X-ray of hand read by radiology soft tissue edema without acute osseous abnormality. DVT ultrasound read as negative. The wrist x-ray read as no acute osseous abnormality. Dr. Steele did do a arthrocentesis of his right wrist due to concern for gout. We will treat for both gout and cellulitis. Patient will follow-up with Dr. Palafox. Patient safe for discharge home.. Johnathan Sanabria MD: I was consulted by the ROSALES, and we discussed the complexity of the problems being addressed. I approve the treatment and management plan for this patient's care in the emergency department, thus performing a substantive portion of the medical decision making. Patient was consented for wrist arthrocentesis, mainly due to concern for gout. X-rays were interpreted by me personally. Patient has hazy opacity in the ulnar aspect of the left wrist soft tissue space could represent cellulitis. There is fairly low concern for septic arthritis, however still within the realm of possibility. There was no erythema over the radial aspect of the joint space, which is where the needle was inserted. Multiple attempts were made with a 23-gauge needle after cleaning the area with chlorhexidine, however this was unsuccessful. procedure was terminated secondary to pain. No fluid was able to be obtained. <Johnathan Sanabria MD - Last Filed: 09/06/25 12:16> Vital Signs: 09/06/25 09:59 09/06/25 09:59 09/06/25 10:26 Temperature 98.8 F 98.8 F Temperature Source Oral Oral Pulse Rate 97 H 89 Pulse Rate [Right] 97 H Respiratory Rate 16 16 Blood Pressure 167/105 H 148/110 H Blood Pressure [Right Arm] 167/105 H Blood Pressure Mean 125 Blood Pressure Mean [Right Arm] 125 Blood Pressure Source Automatic Cuff Blood Pressure Source [Right Arm] Automatic Cuff Blood Pressure Position Supine Blood Pressure Position [Right Arm] Supine 02 Sat by Pulse Oximetry 98 98 98 Oxygen Delivery Method Room Air Room Air 09/06/25 11:00 09/06/25 11:30 Temperature Temperature Source Pulse Rate 91 H 85 Pulse Rate [Right] Respiratory Rate Blood Pressure 161/104 H 146/88 H Blood Pressure [Right Arm] Blood Pressure Mean 123 124 Blood Pressure Mean [Right Arm] Blood Pressure Source Blood Pressure Source [Right Arm] Blood Pressure Position Blood Pressure Position [Right Arm] 02 Sat by Pulse Oximetry 99 96 Oxygen Delivery Method Lab Data Lab Results 09/06/25 10:00: WBC 10.4, RBC 4.81, Hgb 14.6, Hct 43.6, MCV 90.6, MCH 30.4, MCHC 33.5, RDW 12.4, Plt Count 299, MPV 9.7, Neut % (Auto) 74.9, Lymph % (Auto) 13.9, Coryell % (Auto) 9.1, Eos % (Auto) 1.1, Baso % (Auto) 0.5, Neut # (Auto) 7.8, Lymph # (Auto) 1.4, [place] # (Auto) 0.9, Eos # (Auto) 0.1, Baso # (Auto) 0.1, ESR 64 H, Sodium 139, Potassium 4.0, Chloride 105, Carbon Dioxide 27, Anion Gap 11.0, BUN 20, Creatinine 1.60 H, Estimated Creat Clear 53, Estimated GFR 43 L, Est GFR ( Amer) 52 L, Glucose 114 H, Calcium 9.5, Magnesium 2.1, Total Bilirubin 1.1, AST 42, ALT 65, Alkaline Phosphatase 115, C-Reactive Protein 162.8 H, Total Protein 7.3, Albumin 4.1, Globulin 3.2, Albumin/Globulin Ratio 1.3, HCV Ab MARY w/Rflx PCR Qn Negative, HIV Ag/Ab Combo Qual Negative Orders (Tests/Meds): ED MEDICATIONS Discontinued Medications Generic Name Dose Route Start Last Admin Trade Name Freq PRN Reason Stop Dose Admin Dexamethasone Sodium Phosphate 8 mg 09/06/25 10:07 09/06/25 10:19 Dexamethasone 4mg/Ml 1ml Vial IV 09/06/25 10:08 8 mg ONCE ONE Administration Ketorolac Tromethamine 30 mg 09/06/25 10:07 09/06/25 10:19 Ketorolac 30mg/Ml Vial IV 09/06/25 10:08 30 mg ONCE ONE Administration Lidocaine HCl 20 ml 09/06/25 11:30 09/06/25 11:39 Lidocaine 1% 20ml Mdv IJ 09/06/25 11:31 10 ml ONCE ONE Administration ORDERS Category Date Time Status Hand XR right minimum 3 views [XR hand RT min 3V] Stat Exams 09/06/25 10:05 Completed Wrist XR right 2 views [XR wrist RT 2V] Stat Exams 09/06/25 10:31 Taken CBC [Complete Blood Count Auto Diff] Stat Lab 09/06/25 10:00 Completed CRP [C-Reactive Protein] Stat Lab 09/06/25 10:00 Completed Comprehensive Metabolic Panel Stat Lab 09/06/25 10:00 Completed ESR [Erythrocyte Sedimentation Rate] Stat Lab 09/06/25 10:00 Completed HIV Combo Stat Lab 09/06/25 10:00 Completed Hepatitis C Ab Qual. W/ RFX Stat Lab 09/06/25 10:00 Completed Magnesium Stat Lab 09/06/25 10:00 Completed CA venous doppler UE RT Stat Y 09/06/25 10:05 Completed Medical Decision Narrative: patient is a 70-year-old male presenting to the emergency department for evaluation of right hand and wrist swelling that started 2 days ago. Patient is hemodynamically stable and nontoxic-appearing upon arrival, afebrile. Differential diagnosis includes DVT, arthritis, unknown injury, among others. Workup will be conducted with hematologic labs, specific imaging, provocative tests. Initial inventions include analgesics. Initial workup reviewed by me hematologic labs are remarkable for White blood cell count 10.4 the rest of the CBC is normal ESR was 64, CRP was also 162, creatinine was bumped at 1.6, BUN was 20. X-ray of hand read by radiology soft tissue edema without acute osseous abnormality. DVT ultrasound read as negative. The wrist x-ray read as no acute osseous abnormality. Dr. Steele did do a arthrocentesis of his right wrist due to concern for gout. We will treat for both gout and cellulitis. Patient will follow-up with Dr. Palafox. Patient safe for discharge home.. Johnathan Sanabria MD: I was consulted by the ROSALES, and we discussed the complexity of the problems being addressed. I approve the treatment and management plan for this patient's care in the emergency department, thus performing a substantive portion of the medical decision making. Patient was consented for wrist arthrocentesis, mainly due to concern for gout. X-rays were interpreted by me personally. Patient has hazy opacity in the ulnar aspect of the left wrist soft tissue space could represent cellulitis. There is fairly low concern for septic arthritis, however still within the realm of possibility. There was no erythema over the radial aspect of the joint space, which is where the needle was inserted. Multiple attempts were made with a 23-gauge needle after cleaning the area with chlorhexidine, however this was unsuccessful. procedure was terminated secondary to pain. No fluid was able to be obtained. I do feel the patient is safe for discharge home at this time as I favor cellulitis more than a joint space infection. Could be a component of gout as well. Will give follow-up with Dr. Palafox with orthopedic surgery as he is told he has arthritis I would like follow-up for this. Patient was given very strict return precautions for any evidence of worsening infection, swelling, pain, fever. All questions were answered. He demonstrated understanding and was in agreement this plan. He was then discharged from the emergency department in stable condition. Procedures <Johnathan Sanabria MD - Last Filed: 09/06/25 12:16> Joint Aspiration/Injection Joint Asp./Inject. 1: Time Out Performed: Yes Side of body: right Joint Aspirated: wrist/hand Ultrasound Guidance: No Skin Prep: Chlorhexidine Local Anesthetic: lidocaine 1% Amount of anesthesia used (mL): 3 Needle Size Used: Other (23g) Total fluid obtained (mL): 0 Patient Tolerated Procedure: well Complications: unable to obtain fluid Additional Comments: Multiple attempts were made but no fluid was able to be aspirated. Procedure stopped due to pain. Critical Care <Demetrice Tam (JOHN), ASSOCIATE SPA DIRECTOR - Last Filed: 09/06/25 12:11> Critical Care Time Critical Care Time: No
[2025-09-06 10:13] LABS: Hematocrit 43.6 % (42.0-52.0); Hemoglobin 14.6 g/dL (14.1-18.0); Immature Granulocytes % 0.5 %; Mean Corpuscular HGB Conc 33.5 g/dL (31.8-35.4); Mean Corpuscular Hemoglobin 30.4 pg (27.0-31.2); Mean Corpuscular Volume 90.6 fl (80-94); Nucleated Red Blood Cells % 0 %; Platelet Count 299 K/mm3 (142-424); Red Blood Count 4.81 M/mm3 (4.60-6.20); Red Cell Distribution Width-SD 41.0 fL; White Blood Count 10.4 K/mm3 (4.8-10.8)
[2025-09-06 10:19] LABS: Albumin Level 4.1 g/dl (3.5-5.0); Chloride 105 mmol/L (98-107); Sodium 139 mmol/L (136-145)
[2025-09-06] MEDS: DEXAMETHASONE 4MG/ML 1ML VIAL 8 MG IV (10:19)
[2025-09-06] MEDS: KETOROLAC 30MG/ML VIAL 30 MG IV (10:19)
[2025-09-06 10:20] LABS: Potassium 4.0 mmoL/L (3.5-5.1)
[2025-09-06 10:22] LABS: Alanine Aminotransferase 65 U/L (12-78); Albumin/Globulin Ratio 1.3 (1.1-1.8); Alkaline Phosphatase 115 U/L (38-126); Anion Gap 11.0 mEq/L (5-15); Aspartate Amino Transferase 42 U/L (17-59); Bilirubin,Total 1.1 mg/dl (0.2-1.3); Blood Urea Nitrogen 20 mg/dl (9-20); Carbon Dioxide 27 mmol/L (22.0-30.0); Creatinine Clearance Estimated 53 mL/min (50-200); Creatinine,Serum 1.60 mg/dl (0.66-1.25); Estimated Glomerular Filt Rate 43 ml/min (>60); GFR (African American) 52 ML/MIN (>60); Globulin 3.2 g/dL (1.3-3.2); Total Protein,Serum 7.3 g/dl (6.3-8.2)
[2025-09-06 10:23] LABS: Calcium 9.5 mg/dl (8.4-10.2); Glucose 114 mg/dl (74-100); Magnesium 2.1 mg/dl (1.6-2.3)
[2025-09-06 10:26] VITALS: BP 148/110; PULSE 89; O2SAT 98
[2025-09-06 10:29] LABS: C-Reactive Protein 162.8 mg/L (0-4)
--- NOTE | 2025-09-06 10:31 | XR_ITS ---
FINAL REPORT CLINICAL HISTORY: Wrist pain/swelling COMPARISON: None FINDINGS: Two views of the right wrist were obtained. There is no acute fracture or dislocation of the left wrist. There is a lucent lesion in the ulnar styloid process with possible erosion. There are calcifications adjacent to the ulnar styloid process. There is mild soft tissue edema. IMPRESSION: No acute fracture or dislocation. Calcifications adjacent to the ulnar styloid process where there may be an erosion. Please correlate with any history of gout. Consider MRI for further evaluation. Reviewed, Interpreted and Dictated by Maureen Gordon MD Transcribed by Jenifer Levin Authenticated and [facility]
[2025-09-06 11:00] VITALS: BP 161/104; PULSE 91; O2SAT 99
[2025-09-06 11:30] VITALS: BP 146/88; PULSE 85; O2SAT 96
[2025-09-06] MEDS: LIDOCAINE 1% 20ML MDV 20 ML IJ (11:39)
[2025-09-06 11:47] LABS: Hepatitis C Ab Qual. W/ RFX NEGATIVE (Negative)
[2025-09-06 12:15] VITALS: BP 140/85; PULSE 83; RESP 16; TEMP 37; O2SAT 99
== END 2025-09-06 12:21 | disposition home or self-care (01) ==
PROVIDERS: Nurse Practitioner; Emergency Provider Student in an Organized Health Care Education/Training Program
DX: L03.113 Cellulitis of right upper limb (principal); R70.0 Elevated erythrocyte sedimentation rate; M79.641 Pain in right hand
CPT/HCPCS: 20605; 73100; 73130; 80053; 83735; 85025; 85651; 86140; 86803; 87389; 93971; 96374; 96375; 99284; J1100; J1885; J2003